=== PATIENT | male | born 1970 | race Two or more races ===

== ENCOUNTER 2016-05-15 22:43 | Emergency (ER) | payer SELFPAY ==
[2016-05-15] MEDS ORDERED: NO HOME MEDICATION XX (23:32)
== END 2016-05-16 00:15 ==
LOC: EDMED 22:43
PROC: 2W3RXYZ Immobilization of Left Lower Leg using Other Device (ICD-10-PCS; principal; 2016-05-15)
DX: S93.402A Sprain of unspecified ligament of left ankle, initial encounter (principal); X50.1XXA Overexertion from prolonged static or awkward postures, initial encounter; Y93.01 Activity, walking, marching and hiking; Y92.410 Unspecified street and highway as the place of occurrence of the external cause; Y99.8 Other external cause status